=== PATIENT | female | born 1945 | race Caucasian/White ===

== ENCOUNTER 2018-04-26 10:20 | Emergency (ER) | payer MEDICARE ==
[2018-04-26] MEDS ORDERED: Metoprolol Tartrate 5 MG/5 ML VIAL ONE (10:42)
[2018-04-26 10:52] LABS: PTT 28.8 SEC (22.9-36.1); Prothrombin Time 13.2 SEC (12.0-14.7)
[2018-04-26 10:59] LABS: #Basophils 0.1 thou/uL (0.0-0.2); #Eosinphils 0.5 thou/uL (0.0-0.7); #Lymphocytes 3.8 thou/uL (1.20-3.40); #Neutrophils 4.5 thou/uL (1.40-6.50); %Eosinophils 4.7 % (0.0-10.0); %Lymphocytes 38.5 % (21.0-51.0); %Monocytes 10.5 % (0.0-10.0); %Neutrophils 45.3 % (42.0-75.0); Mean Corpuscular HGB CONC 34.1 g/dL (32.0-36.0); Mean Corpuscular Hemoglobin 35.2 pg (27.0-31.0); Mean Corpuscular Volume 103.2 fL (78.0-98.0); Mean Platelet Volume 9.9 fL (7.4-10.4); Platelet Count 258 thou/uL (130-400); RBC Distribution Width 11.9 % (11.5-14.5); Red Blood Cell (RBC) Count 3.97 mill/uL (4.20-5.40); White Blood Cell (WBC) Count 9.8 thou/uL (4.8-10.8)
[2018-04-26 11:04] LABS: ALT (SGPT) 20 U/L (8-55); AST (SGOT) 27 U/L (5-34); Albumin 4.1 g/dL (3.4-4.8); Alkaline Phosphatase 73 U/L (40-150); Anion Gap 17 mmol/L (10-20); BUN (Urea Nitrogen) 19 mg/dL (9.8-20.1); Bilirubin, Total 0.4 mg/dL (0.2-1.2); Calc. Creatinine Clearance 0 mL/min (70-130); Calcium 10.7 mg/dL (7.8-10.44); Carbon Dioxide 25 mmol/L (23-31); Chloride 99 mmol/L (98-107); Estimated GFR-MDRD 63; Globulin 4.3 g/dL (2.4-3.5); Glucose 113 mg/dL (83-110); Potassium 3.3 mmol/L (3.5-5.1); Protein, Total 8.4 g/dL (6.0-8.3); Sodium 138 mmol/L (136-145)
[2018-04-26 11:05] LABS: CKMB 1.1 ng/mL (0-6.6); Troponin I Less than 0.010 ng/mL (< 0.028)
[2018-04-26 11:07] LABS: Manual Diff?? NO
[2018-04-26] MEDS ORDERED: Furosemide 20 MG/2 ML VIAL ONE (11:37)
[2018-04-26] MEDS ORDERED: Potassium Chloride 20 MEQ TAB ONE (11:37)
--- NOTE | 2018-04-26 11:40 | RAD ---
PORTABLE CHEST 1 VIEW: Date: 04/26/18 Time: 1030 hours HISTORY: Chest pain. FINDINGS: Comparison made with exam of 09/01/14. The heart size is normal. The lungs are well expanded without focal areas of consolidation, pneumotho races, or pleural effusions. IMPRESSION: No acute process. POS: C
== END 2018-04-26 12:05 | disposition home or self-care (01) ==
LOC: MADERS 10:20
DX: I48.0 Paroxysmal atrial fibrillation (principal)
CPT/HCPCS: 71045; 80053; 82553; 83735; 83880; 84443; 84484; 85025; 85610; 85730; 93005; 96374; 96375; J1940

== ENCOUNTER 2019-07-15 17:22 | Outpatient (CLI) | payer MEDICARE ==
--- NOTE | 2019-07-15 18:55 | RAD ---
TWO VIEWS CHEST: Indications: Asthmatic bronchitis. Comparison: 07-19-18 FINDINGS: Borderline cardiomegaly is stable. There is vascular and interstitial prominence which may represent mild congestion and interstitial edema. Prominent cardiophrenic fat pad in the right medial lung base is stable in appearance. Pacemaker leads are unchanged. No focal infiltrate or consolidation. No sig nificant effusion. IMPRESSION: Mild vascular and interstitial congestion. POS: AGW
== END 2019-07-15 17:23 | disposition home or self-care (01) ==
LOC: MADRAD 17:22
PROVIDERS: ATTEND Family Medicine
DX: J45.909 Unspecified asthma, uncomplicated (principal); J84.89 Other specified interstitial pulmonary diseases
CPT/HCPCS: 71046

== ENCOUNTER 2020-02-26 10:51 | Emergency (ER) | payer MEDICARE ==
[2020-02-26] MEDS ORDERED: Nitroglycerin 2% Ointment 1 INCH/1 GM Packet ONE (11:18)
[2020-02-26] MEDS ORDERED: Aspirin Chewable 81 MG TAB ONE (11:18)
[2020-02-26] MEDS ORDERED: Furosemide 40 MG/4 ML VIAL ONE (11:18)
--- NOTE | 2020-02-26 11:20 | RAD ---
XR Chest 1 View Portable HISTORY: Dyspnea COMPARISON: 07/15/2019 FINDINGS: The heart size is borderline. The aorta is tortuous. Left-sided pacemaker device remains in place. There is diffuse pulmonary edema. No lobar consolidation, pneumothoraces or large effusions are seen. IMPRESSION: Findings are suspicious for CHF.
[2020-02-26 11:44] LABS: #Basophils 0.1 thou/uL (0.0-0.2); #Eosinphils 0.2 thou/uL (0.0-0.7); #Lymphocytes 2.8 thou/uL (1.20-3.40); #Monocytes 1.2 thou/uL (0.11-0.59); #Neutrophils 10.3 thou/uL (1.40-6.50); %Basophils 0.8 % (0.0-1.0); %Lymphocytes 19.3 % (21.0-51.0); %Neutrophils 70.8 % (42.0-75.0); Hemoglobin 12.4 g/dL (12.0-16.0); MDiff Complete? YES; Macrocytosis SLIGHT = 6-15 cells (100X) (0-5/hpf); Mean Corpuscular Hemoglobin 34.8 pg (27.0-31.0); Mean Corpuscular Volume 108.6 fL (78.0-98.0); Mean Platelet Volume 9.2 fL (7.4-10.4); Platelet Count 384 thou/uL (130-400); RBC Distribution Width 13.1 % (11.5-14.5); Red Blood Cell (RBC) Count 3.56 mill/uL (4.20-5.40); White Blood Cell (WBC) Count 14.5 thou/uL (4.8-10.8)
[2020-02-26 11:53] LABS: ALT (SGPT) 25 U/L (8-55); AST (SGOT) 30 U/L (5-34); Albumin 3.8 g/dL (3.4-4.8); Alkaline Phosphatase 76 U/L (40-110); Anion Gap 19 mmol/L (10-20); BUN (Urea Nitrogen) 20 mg/dL (9.8-20.1); Bilirubin, Total 0.5 mg/dL (0.2-1.2); CK (CPK) 66 U/L (29-168); Calc. Creatinine Clearance 0 mL/min (70-130); Calcium 10.5 mg/dL (7.8-10.44); Carbon Dioxide 21 mmol/L (23-31); Chloride 104 mmol/L (98-107); Globulin 4.1 g/dL (2.4-3.5); Glucose 154 mg/dL (83-110); Potassium 3.9 mmol/L (3.5-5.1); Protein, Total 7.9 g/dL (6.0-8.3); Sodium 140 mmol/L (136-145)
[2020-02-26] MEDS ORDERED: cefTRIAXone\\ROCEPHIN 1 GM VIAL ONE (12:02)
[2020-02-26] MEDS ORDERED: Sodium Chloride 0.9% 100 ML ONE (12:02)
[2020-02-26 12:03] LABS: Bilirubin Negative (Negative); Blood, Urine Small (Negative); Clarity Clear (Clear); Glucose, Urine (Dipstick) Negative (Negative); Ketone, Urine Negative (Negative); Leukocyte Negative (Negative); Nitrite Negative (Negative); Protein, Urine (Dipstick) 30 mg/dL (Neg-Trace); Urobilinogen 0.2 mg/dL (Less than 2); pH, Urine 6.5 (5.0-9.0)
[2020-02-26 12:09] LABS: Bacteria/HPF 1+ HPF (None Seen); RBC/HPF 0-3 HPF (0-3); Squamous Epithelial 0-3 HPF (0-3); WBC/HPF 0-3 HPF (0-3)
[2020-02-26] MEDS ORDERED: Azithromycin 500 MG VIAL ONE (13:03)
[2020-02-26] MEDS ORDERED: Sodium Chloride 0.9% 250 ML 250 ML ONE (13:03)
[2020-02-26 14:10] LABS: Lactic Acid 1.7 mmol/L (0.5-2.2)
== END 2020-02-26 14:15 | disposition short-term general hospital (02) ==
LOC: MADERS 10:51
DX: A41.9 Sepsis, unspecified organism (principal); R65.20 Severe sepsis without septic shock; I50.9 Heart failure, unspecified; K21.9 Gastro-esophageal reflux disease without esophagitis; E78.5 Hyperlipidemia, unspecified; I11.0 Hypertensive heart disease with heart failure; I48.91 Unspecified atrial fibrillation; Z79.899 Other long term (current) drug therapy
CPT/HCPCS: 36415; 71045; 80053; 81003; 81015; 82550; 83605; 83880; 84443; 84484; 85025; 87040; 87086; 93005; 94760; 96365; 96375; J0456; J0696; J1940; J3490; J7050

== ENCOUNTER 2020-09-07 14:15 | Outpatient (CLI) | payer MEDICARE ==
[2020-09-07 23:00] LABS: Vitamin D, 25 Hydroxy 69.7 ng/ml (> 30.0)
== END 2020-09-07 14:16 | disposition home or self-care (01) ==
LOC: MADLAB 14:15
PROVIDERS: ATTEND Family Medicine
DX: D75.89 Other specified diseases of blood and blood-forming organs (principal)
CPT/HCPCS: 36415; 82306; 82607; 82746

== ENCOUNTER 2022-02-07 12:59 | Outpatient (CLI) | payer MEDICARE ==
[2022-02-07 13:52] LABS: #Eosinphils 0.1 thou/uL (0.0-0.7); #Lymphocytes 2.3 thou/uL (1.20-3.40); #Monocytes 0.8 thou/uL (0.11-0.59); #Neutrophils 5.9 thou/uL (1.40-6.50); %Basophils 0.5 % (0.0-1.0); %Eosinophils 1.5 % (0.0-10.0); %Lymphocytes 25.5 % (21.0-51.0); %Monocytes 8.8 % (0.0-10.0); %Neutrophils 63.8 % (42.0-75.0); Hemoglobin 12.2 g/dL (12.0-16.0); Hypochromia SLIGHT = 6-15 cells (100X) (0-5/hpf); MDiff Complete? YES; Macrocytosis SLIGHT = 6-15 cells (100X) (0-5/hpf); Mean Corpuscular HGB CONC 32.3 g/dL (32.0-36.0); Mean Corpuscular Hemoglobin 35.6 pg (27.0-31.0); Mean Corpuscular Volume 110.4 fL (78.0-98.0); Mean Platelet Volume 11.6 fL (7.4-10.4); Platelet Count 205 thou/uL (130-400); Platelet Morphology Comment Appears Adequate; RBC Distribution Width 12.6 % (11.5-14.5); Red Blood Cell (RBC) Count 3.43 mill/uL (4.20-5.40); White Blood Cell (WBC) Count 9.2 thou/uL (4.8-10.8)
== END 2022-02-07 13:00 | disposition home or self-care (01) ==
LOC: MADLABBHPM 12:59 → MADLAB 13:00
PROVIDERS: ATTEND Family Medicine
DX: R35.0 Frequency of micturition (principal); D75.89 Other specified diseases of blood and blood-forming organs
CPT/HCPCS: 85025; 87086

== ENCOUNTER 2022-04-27 13:20 | Outpatient (CLI) | payer MEDICARE ==
[~2022-04-27 13:20] MED LIST: Iopamidol 370 76% 100 ML VIAL ONE
[2022-04-27 13:49] LABS: Anion Gap 15 mmol/L (10-20); BUN (Urea Nitrogen) 22 mg/dL (9.8-20.1); Calc. Creatinine Clearance 0 mL/min (70-130); Calcium 10.7 mg/dL (7.8-10.44); Carbon Dioxide 29 mmol/L (23-31); Chloride 100 mmol/L (98-107); Estimated GFR 68; Glucose 100 mg/dL (83-110); Potassium 3.5 mmol/L (3.5-5.1); Sodium 140 mmol/L (136-145)
== END 2022-04-27 13:21 | disposition home or self-care (01) ==
LOC: MADCT 13:20
PROVIDERS: ATTEND Internal Medicine Cardiovascular Disease
DX: R06.02 Shortness of breath (principal); I27.20 Pulmonary hypertension, unspecified; I70.0 Atherosclerosis of aorta; K80.20 Calculus of gallbladder without cholecystitis without obstruction
CPT/HCPCS: 36415; 71275; 80048; Q9967

== ENCOUNTER 2022-07-07 16:40 | Inpatient (IN) | payer MEDICARE ==
[2022-07-07] MEDS: Flecainide 50 MG TAB PO SCH (21:11)
[2022-07-07] MEDS: Atorvastatin Calcium 40 MG TAB PO SCH (21:11)
[2022-07-07] MEDS: Calcium Carbonate 600 MG + Vit D TAB PO SCH (21:11)
[2022-07-07] MEDS: Acetaminophen 325 MG TAB PO PRN (21:43)
[2022-07-08 05:55] LABS: Anion Gap 16 mmol/L (10-20); BUN (Urea Nitrogen) 12 mg/dL (9.8-20.1); Calc. Creatinine Clearance 78 mL/min (70-130); Calcium 10.5 mg/dL (7.8-10.44); Carbon Dioxide 29 mmol/L (23-31); Chloride 97 mmol/L (98-107); Estimated GFR 88; Glucose 106 mg/dL (83-110); Potassium 3.3 mmol/L (3.5-5.1); Sodium 139 mmol/L (136-145)
[2022-07-08] MEDS: Aspirin 81 mg Enteric Coated Tablet PO SCH (08:24)
[2022-07-08] MEDS: Calcium Carbonate 600 MG + Vit D TAB PO SCH ×3 (08:24→20:49)
[2022-07-08] MEDS: Spironolactone 25 MG TAB PO SCH (08:24)
[2022-07-08] MEDS: Docusate 100 MG CAP PO SCH (08:25)
[2022-07-08] MEDS: CO Q-10 CAPSULE 100 MG PO SCH (08:25)
[2022-07-08] MEDS: Loratadine 10 MG TAB PO SCH (08:25)
[2022-07-08] MEDS: Flecainide 50 MG TAB PO SCH ×2 (08:25→20:19)
[2022-07-08] MEDS: Acetaminophen 325 MG TAB PO PRN ×3 (08:29→20:19)
[2022-07-08] MEDS ORDERED: Furosemide 40 MG TAB PO SCH ×2 (11:30→14:00)
[2022-07-08] MEDS: Atorvastatin Calcium 40 MG TAB PO SCH (20:19)
[2022-07-09 05:49] LABS: Anion Gap 15 mmol/L (10-20); BUN (Urea Nitrogen) 13 mg/dL (9.8-20.1); Calc. Creatinine Clearance 80 mL/min (70-130); Carbon Dioxide 28 mmol/L (23-31); Chloride 99 mmol/L (98-107); Estimated GFR 89; Glucose 106 mg/dL (83-110); Potassium 3.5 mmol/L (3.5-5.1); Sodium 138 mmol/L (136-145)
[2022-07-09] MEDS: Flecainide 50 MG TAB PO SCH ×2 (08:15→19:59)
[2022-07-09] MEDS: Potassium Chloride 20 MEQ TAB PO SCH (08:15)
[2022-07-09] MEDS: Docusate 100 MG CAP PO SCH (08:15)
[2022-07-09] MEDS: Loratadine 10 MG TAB PO SCH (08:15)
[2022-07-09] MEDS: Aspirin 81 mg Enteric Coated Tablet PO SCH (08:15)
[2022-07-09] MEDS: Calcium Carbonate 600 MG + Vit D TAB PO SCH ×2 (08:15→19:59)
[2022-07-09] MEDS: Spironolactone 25 MG TAB PO SCH (08:15)
[2022-07-09] MEDS: Furosemide 40 MG TAB PO SCH (08:15)
[2022-07-09] MEDS: CO Q-10 CAPSULE 100 MG PO SCH (08:15)
[2022-07-09] MEDS: Acetaminophen 325 MG TAB PO PRN ×2 (10:00→20:02)
[2022-07-09] MEDS: Atorvastatin Calcium 40 MG TAB PO SCH (19:59)
[2022-07-09] MEDS: Melatonin 3 MG TAB PO PRN (20:02)
[2022-07-10] MEDS: Furosemide 40 MG TAB PO SCH (08:13)
[2022-07-10] MEDS: Flecainide 50 MG TAB PO SCH ×2 (08:13→20:04)
[2022-07-10] MEDS: Potassium Chloride 20 MEQ TAB PO SCH (08:13)
[2022-07-10] MEDS: Aspirin 81 mg Enteric Coated Tablet PO SCH (08:13)
[2022-07-10] MEDS: Calcium Carbonate 600 MG + Vit D TAB PO SCH ×3 (08:13→20:12)
[2022-07-10] MEDS: Docusate 100 MG CAP PO SCH (08:13)
[2022-07-10] MEDS: CO Q-10 CAPSULE 100 MG PO SCH (08:13)
[2022-07-10] MEDS: Acetaminophen 325 MG TAB PO PRN ×2 (08:14→20:05)
[2022-07-10] MEDS: Spironolactone 25 MG TAB PO SCH (08:14)
[2022-07-10] MEDS: Loratadine 10 MG TAB PO SCH (08:14)
[2022-07-10] MEDS ORDERED: Potassium Chloride 20 MEQ TAB PO SCH (16:00)
[2022-07-10] MEDS ORDERED: Furosemide 40 MG TAB PO SCH (16:00)
[2022-07-10] MEDS: Atorvastatin Calcium 40 MG TAB PO SCH (20:06)
[2022-07-10] MEDS: Melatonin 3 MG TAB PO PRN (22:42)
[2022-07-11] MEDS: Aspirin 81 mg Enteric Coated Tablet PO SCH (09:12)
[2022-07-11] MEDS: Loratadine 10 MG TAB PO SCH (09:12)
[2022-07-11] MEDS: Potassium Chloride 20 MEQ TAB PO SCH (09:12)
[2022-07-11] MEDS: Flecainide 50 MG TAB PO SCH ×2 (09:12→21:44)
[2022-07-11] MEDS: Docusate 100 MG CAP PO SCH (09:12)
[2022-07-11] MEDS: Spironolactone 25 MG TAB PO SCH (09:12)
[2022-07-11] MEDS: Calcium Carbonate 600 MG + Vit D TAB PO SCH (09:13)
[2022-07-11] MEDS: CO Q-10 CAPSULE 100 MG PO SCH (09:13)
[2022-07-11] MEDS: Furosemide 40 MG TAB PO SCH (09:13)
[2022-07-11] MEDS: Acetaminophen 325 MG TAB PO PRN (14:11)
[2022-07-11] MEDS: Atorvastatin Calcium 40 MG TAB PO SCH (21:43)
[2022-07-11] MEDS: Melatonin 3 MG TAB PO PRN (21:44)
[2022-07-11] MEDS: Acetaminophen 500 MG TAB PO PRN (21:44)
[2022-07-12] MEDS: Potassium Chloride 20 MEQ TAB PO SCH (08:31)
[2022-07-12] MEDS: Furosemide 40 MG TAB PO SCH (08:32)
[2022-07-12] MEDS: Aspirin 81 mg Enteric Coated Tablet PO SCH (08:32)
[2022-07-12] MEDS: CO Q-10 CAPSULE 100 MG PO SCH (08:32)
[2022-07-12] MEDS: Loratadine 10 MG TAB PO SCH (08:32)
[2022-07-12] MEDS: Flecainide 50 MG TAB PO SCH ×2 (08:33→20:52)
[2022-07-12] MEDS: Docusate 100 MG CAP PO SCH (08:33)
[2022-07-12] MEDS: Spironolactone 25 MG TAB PO SCH (08:33)
[2022-07-12] MEDS: Atorvastatin Calcium 40 MG TAB PO SCH (20:52)
[2022-07-12] MEDS: Melatonin 3 MG TAB PO PRN (22:07)
[2022-07-12] MEDS: Acetaminophen 500 MG TAB PO PRN (22:07)
[2022-07-13] MEDS: CO Q-10 CAPSULE 100 MG PO SCH (08:08)
[2022-07-13] MEDS: Flecainide 50 MG TAB PO SCH ×2 (08:08→21:21)
[2022-07-13] MEDS: Potassium Chloride 20 MEQ TAB PO SCH (08:08)
[2022-07-13] MEDS: Loratadine 10 MG TAB PO SCH (08:08)
[2022-07-13] MEDS: Furosemide 40 MG TAB PO SCH (08:08)
[2022-07-13] MEDS: Aspirin 81 mg Enteric Coated Tablet PO SCH (08:08)
[2022-07-13] MEDS: Acetaminophen 325 MG TAB PO PRN (08:09)
[2022-07-13] MEDS: Docusate 100 MG CAP PO SCH (08:09)
[2022-07-13] MEDS: Spironolactone 25 MG TAB PO SCH (08:09)
[2022-07-13 11:12] VITALS: BMI 25.9
[2022-07-13] MEDS: Atorvastatin Calcium 40 MG TAB PO SCH (21:20)
[2022-07-13] MEDS: Acetaminophen 500 MG TAB PO PRN (21:21)
[2022-07-13] MEDS: Melatonin 3 MG TAB PO PRN (21:22)
[2022-07-14] MEDS: Aspirin 81 mg Enteric Coated Tablet PO SCH (07:58)
[2022-07-14] MEDS: Furosemide 40 MG TAB PO SCH (07:58)
[2022-07-14] MEDS: Docusate 100 MG CAP PO SCH (07:59)
[2022-07-14] MEDS: CO Q-10 CAPSULE 100 MG PO SCH (07:59)
[2022-07-14] MEDS: Loratadine 10 MG TAB PO SCH (07:59)
[2022-07-14] MEDS: Spironolactone 25 MG TAB PO SCH (07:59)
[2022-07-14] MEDS: Flecainide 50 MG TAB PO SCH ×2 (07:59→21:38)
[2022-07-14] MEDS: Potassium Chloride 20 MEQ TAB PO SCH (07:59)
[2022-07-14] MEDS: Atorvastatin Calcium 40 MG TAB PO SCH (21:38)
[2022-07-14] MEDS: Melatonin 3 MG TAB PO PRN (21:39)
[2022-07-14] MEDS: Acetaminophen 500 MG TAB PO PRN (21:40)
[2022-07-15] MEDS: Furosemide 40 MG TAB PO SCH (08:30)
[2022-07-15] MEDS: Aspirin 81 mg Enteric Coated Tablet PO SCH (08:30)
[2022-07-15] MEDS: Potassium Chloride 20 MEQ TAB PO SCH (08:31)
[2022-07-15] MEDS: CO Q-10 CAPSULE 100 MG PO SCH (08:31)
[2022-07-15] MEDS: Loratadine 10 MG TAB PO SCH (08:31)
[2022-07-15] MEDS: Docusate 100 MG CAP PO SCH (08:31)
[2022-07-15] MEDS: Flecainide 50 MG TAB PO SCH (08:31)
[2022-07-15] MEDS: Spironolactone 25 MG TAB PO SCH (08:31)
[2022-07-15 08:41] VITALS: TEMP 97.9
[2022-07-15 08:44] VITALS: BP 131/71
== END 2022-07-15 13:20 | disposition home or self-care (01) | DRG 947 ==
LOC: MADMS 16:40
PROVIDERS: ADMIT Family Medicine; ATTEND Family Medicine
DX: R53.81 Other malaise (principal); I50.23 Acute on chronic systolic (congestive) heart failure; I48.20 Chronic atrial fibrillation, unspecified; I11.0 Hypertensive heart disease with heart failure; E78.5 Hyperlipidemia, unspecified; M19.90 Unspecified osteoarthritis, unspecified site; K21.9 Gastro-esophageal reflux disease without esophagitis; I48.0 Paroxysmal atrial fibrillation; E87.6 Hypokalemia; G47.00 Insomnia, unspecified; Z88.0 Allergy status to penicillin; Z88.1 Allergy status to other antibiotic agents; Z95.0 Presence of cardiac pacemaker; Z88.8 Allergy status to other drugs, medicaments and biological substances; Z79.82 Long term (current) use of aspirin; Z79.899 Other long term (current) drug therapy
CPT/HCPCS: 80048

== ENCOUNTER 2022-10-18 14:12 | Outpatient (CLI) | payer MEDICARE ==
[2022-10-18 15:14] LABS: #Basophils 0.1 thou/uL (0.0-0.2); #Eosinphils 0.3 thou/uL (0.0-0.7); #Lymphocytes 2.2 thou/uL (1.20-3.40); #Monocytes 0.6 thou/uL (0.11-0.59); #Neutrophils 2.8 thou/uL (1.40-6.50); %Basophils 0.9 % (0.0-1.0); %Eosinophils 4.6 % (0.0-10.0); %Lymphocytes 36.7 % (21.0-51.0); %Monocytes 10.7 % (0.0-10.0); %Neutrophils 47.1 % (42.0-75.0); Hemoglobin 14.3 g/dL (12.0-16.0); MDiff Complete? YES; Macrocytosis SLIGHT = 6-15 cells (100X) (0-5/hpf); Mean Corpuscular HGB CONC 32.2 g/dL (32.0-36.0); Mean Corpuscular Volume 114.9 fl (78.0-98.0); Mean Platelet Volume 10.4 fL (7.4-10.4); Platelet Count 193 10x3/uL (130-400); Platelet Morphology Comment Appears Adequate; RBC Distribution Width 12.5 % (11.5-14.5); Red Blood Cell (RBC) Count 3.87 mill/uL (4.20-5.40); White Blood Cell (WBC) Count 5.9 10x3/uL (4.8-10.8)
[2022-10-18 15:49] LABS: ALT (SGPT) 17 U/L (8-55); AST (SGOT) 24 U/L (5-34); Albumin 4.1 g/dL (3.4-4.8); Alkaline Phosphatase 85 U/L (40-110); Anion Gap 18 mmol/L (10-20); BUN (Urea Nitrogen) 30 mg/dL (9.8-20.1); Bilirubin, Total 0.3 mg/dL (0.2-1.2); Calc. Creatinine Clearance 0 mL/min (70-130); Calcium 11.8 mg/dL (7.8-10.44); Carbon Dioxide 27 mmol/L (23-31); Cardiac Risk 4.4 (Less than 4.5); Chloride 100 mmol/L (98-107); Cholesterol 212 mg/dl (< 200 Desired); Estimated GFR 63; Globulin 4.3 g/dL (2.4-3.5); Glucose 82 mg/dL (83-110); HDL Cholesterol 48 mg/dL (>60 Neg Risk); LDL Cholesterol, Calculated 117 mg/dL; Potassium 4.3 mmol/L (3.5-5.1); Protein, Total 8.4 g/dL (5.8-8.1); Sodium 141 mmol/L (136-145); Triglycerides 233 mg/dL (Less than 150)
== END 2022-10-18 14:13 | disposition home or self-care (01) ==
LOC: MADLABBHPM 14:12 → MADLAB 14:13
PROVIDERS: ATTEND Family Medicine
DX: D64.9 Anemia, unspecified (principal); I10 Essential (primary) hypertension; E78.5 Hyperlipidemia, unspecified
CPT/HCPCS: 80053; 80061; 84443; 85025